=== PATIENT | male | born 1970 | race Caucasian/White ===

== ENCOUNTER 2020-11-18 07:32 | Inpatient (IN) | payer MEDICARE, OTHER ==
--- NOTE | 2020-11-18 08:22 | ED ---
General Adult HPI - General Chief complaint: Fall Stated complaint: sore on foot Time Seen by Provider: 11/18/20 07:47 Source: EMS Mode of arrival: EMS Limitations: no limitations - History of Present Illness Initial comments: 50-year-old male presents to the emergency room for a chief complaint of fall. Family reports patient has been complaining of right foot pain and has been falling. Patient usually uses a walker by his walker has been broken. This morning he did not use it and went to the bathroom and fell. He is complaining of left knee pain and right foot pain. Family is concerned that he needs rehab. States that they cannot take him home and she keeps falling. They state they have had to do this before as well.Patient has no other complaints at this time including shortness of breath, chest pain, abdominal pain, nausea or vomiting, headache, or visual changes. - Related Data Home Medications Medication Instructions Recorded Confirmed ARIPiprazole [Abilify] 5 mg PO HS@1900 11/23/13 11/18/20 ARIPiprazole [Abilify] 15 mg PO DAILY@79911/23/13 11/18/20 Citalopram Hydrobromide [CeleXA] 20 mg PO DAILY@0811/23/13 11/18/20 Topiramate 200 mg PO TID@0800,1600,1700 11/23/13 11/18/20 cloNIDine [Catapres-TTS] 0.1 mg PO TID@0800,1600,1900 11/23/13 11/18/20 Pravastatin Sodium [Pravachol] 40 mg PO HS@1900 09/19/15 11/18/20 Topiramate 25 mg PO DAILY@0809/19/15 11/18/20 carBAMazepine [carBAMazepine ER] 300 mg PO BID@0800,1900 09/19/15 11/18/20 Lisinopril-Hctz 10-12.5 mg 1 tab PO HS@189911/18/20 11/18/20 [Zestoretic 10-12.5] Naproxen 500 mg PO BID@0800,1600 11/18/20 11/18/20 Pediatric Multivitamin No.30 2 tab PO DAILY@0811/18/20 11/18/20 [Multivitamin Children's Gummies] metFORMIN HCL ER [Glucophage XR] 500 mg PO DAILY@1400 11/18/20 11/18/20 Allergies Allergy/AdvReac Type Severity Reaction Status Date / Time No Known Allergies Allergy Verified 11/18/20 09:01 Review of Systems ROS Statement: Those systems with pertinent positive or pertinent negative responses have been documented in the HPI. ROS Other: All systems not noted in ROS Statement are negative. 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 History of Any Multi-Drug Resistant Organisms: None Reported Past Surgical History: No Surgical Hx Reported Additional Past Surgical History / Comment(s): per mom- no past sx Past Anesthesia/Blood Transfusion Reactions: No Reported Reaction Additional Past Anesthesia/Blood Transfusion Reaction / Comment(s): never had aa Past Psychological History: No Psychological Hx Reported Past Alcohol Use History: None Reported Past Drug Use History: None Reported - Past Family History Mother Family Medical History: No Reported History Additional Family Medical History / Comment(s): mom stated her only problem is her wt. Father Family Medical History: No Reported History Additional Family Medical History / Comment(s): prostate cancer General Exam - General Exam Comments Initial Comments: Left knee: Patient has some edema noted of the left knee. No ecchymosis. Full range of motion. Patient has a large mass noted of the right leg. Limitations: no limitations General appearance: alert, in no apparent distress Head exam: Present: atraumatic Eye exam: Present: normal appearance, PERRL, EOMI. Absent: scleral icterus, conjunctival injection ENT exam: Present: normal exam, mucous membranes moist Neck exam: Present: normal inspection, full ROM. Absent: tenderness Respiratory exam: Present: normal lung sounds bilaterally. Absent: respiratory distress, wheezes Cardiovascular Exam: Present: regular rate, normal rhythm, normal heart sounds GI/Abdominal exam: Present: soft, normal bowel sounds. Absent: distended, tenderness Extremities exam: Present: tenderness (Mild tenderness in the generalized right foot.), normal capillary refill (Capillary refill less than 2 seconds.) Back exam: Absent: CVA tenderness (R), CVA tenderness (L) Neurological exam: Present: alert Course Vital Signs 11/18/20 11/18/20 07:38 09:39 Temperature 98.8 F Pulse Rate 75 76 Respiratory 18 18 Rate Blood Pressure 112/60 105/59 O2 Sat by Pulse 98 100 Oximetry Medical Decision Making - Medical Decision Making Vitals are stable. Patient is obese. Unable to move the right leg secondary to a large mass on the right leg. CBC unremarkable however evidence of dehydration and CMP. X-ray of the knee was obtained given a has been swollen since previous fall which did not show any fractures. Foot x-ray showed no acute fracture or dislocation. However patient is not able to ambulate on the right foot. It is unclear whether this is because of the fall and foot pain or a blood blister on the bottom of his foot. At any rate patient states family do not feel they can take him home. They state that he cannot get around because his walker is broken and his foot is hurting him too much. They state this is happened before and he has needed rehab. I did discuss this case with Dr. Sullivan who did e xcept the admission however recommended orthopedic consultation as well as PTOT and case management. - Lab Data Result diagrams: 11/18/20 08:11 11/18/20 08:11 Lab Results 11/18/20 11/18/20 Range/Units 08:11 08:11 WBC 11.0 H (3.8-10.6) k/uL RBC 4.59 (4.30-5.90) m/uL Hgb 13.3 (13.0-17.5) gm/dL Hct 41.8 (39.0-53.0) % MCV 91.0 (80.0-100.0) fL MCH 29.1 (25.0-35.0) pg MCHC 32.0 (31.0-37.0) g/dL RDW 14.3 (11.5-15.5) % Plt Count 237 (150-450) k/uL MPV 7.5 Neutrophils % 74 % Lymphocytes % 18 % Monocytes % 4 % Eosinophils % 3 % Basophils % 0 % Neutrophils # 8.1 H (1.3-7.7) k/uL Lymphocytes # 2.0 (1.0-4.8) k/uL Monocytes # 0.4 (0-1.0) k/uL Eosinophils # 0.3 (0-0.7) k/uL Basophils # 0.1 (0-0.2) k/uL Sodium 139 (137-145) mmol/L Potassium 4.1 (3.5-5.1) mmol/L Chloride 105 (98-107) mmol/L Carbon Dioxide 24 (22-30) mmol/L Anion Gap 10 mmol/L BUN 27 H (9-20) mg/dL Creatinine 1.35 H (0.66-1.25) mg/dL Est GFR (CKD-EPI)AfAm 70 (>60 ml/min/1.73 sqM) Est GFR (CKD-EPI)NonAf 61 (>60 ml/min/1.73 sqM) Glucose 117 H (74-99) mg/dL Calcium 8.6 (8.4-10.2) mg/dL Total Bilirubin 0.3 (0.2-1.3) mg/dL AST 20 (17-59) U/L ALT 13 (4-49) U/L Alkaline Phosphatase 100 (38-126) U/L Total Protein 6.6 (6.3-8.2) g/dL Albumin 3.5 (3.5-5.0) g/dL Disposition Clinical Impression: Unable to ambulate, Failure to thrive, Dehydration, Mass of right lower leg, Foot pain, right Disposition: ADMITTED IP TO THIS HOSP Condition: Fair Is patient prescribed a controlled substance at d/c from ED?: No Referrals: Casey Jose MD [Primary Care Provider] - 1-2 days Time of Disposition: 10:21
[2020-11-18 08:23] LABS: Basophils # (A) 0.1 k/uL (0-0.2); Basophils % (A) 0 %; Eosinophils # (A) 0.3 k/uL (0-0.7); Eosinophils % (A) 3 %; HCT 41.8 % (39.0-53.0); HGB 13.3 gm/dL (13.0-17.5); Lymphocytes % (A) 18 %; MCH 29.1 pg (25.0-35.0); Mean Platelet Volume 7.5; Monocytes # (A) 0.4 k/uL (0-1.0); Monocytes % (A) 4 %; Neutrophils # (A) 8.1 k/uL (1.3-7.7); Neutrophils % (A) 74 %; Platelet Count 237 k/uL (150-450); RBC 4.59 m/uL (4.30-5.90); RDW 14.3 % (11.5-15.5)
[2020-11-18 08:41] LABS: Albumin 3.5 g/dL (3.5-5.0); Calcium 8.6 mg/dL (8.4-10.2); Potassium 4.1 mmol/L (3.5-5.1); Total Bilirubin 0.3 mg/dL (0.2-1.3); Total Protein 6.6 g/dL (6.3-8.2)
--- NOTE | 2020-11-18 09:29 | XR ---
Right foot HISTORY: Trauma and pain 2 views the right foot Exam is limited technically. Digits are flexed which could limit sensitivity, and is overlying artifa ct. Alignment and bone mineralization, joint spaces are maintained, degenerative changes present at t he first metatarsophalangeal joint. Area of the proximal fifth metatarsal is not well-defined. There is degenerative change at the tibiotalar joint. Soft tissue swelling is present. IMPRESSION: No acute fracture or dislocation is evident within the limitations of the exam. Correlate for point tenderness proximal fifth metatarsal.
--- NOTE | 2020-11-18 09:31 | XR ---
Left knee HISTORY: Trauma and pain 2 views of left knee Exam is limited by patient body habitus. There is marginal spurring, tricompartmental loss of joint s pace. Alignment and bone mineralization are maintained. There is soft tissue swelling noted in the pr epatellar location. IMPRESSION: Correlate for ecchymosis, hematoma. There is osteoarthritis. No acute fracture or disloca tion evident within the limitations of the exam.
[2020-11-18] MEDS ORDERED: MORPHINE SULFATE 4 MG/ML SYRINGE IV PRN (10:22)
[2020-11-18] MEDS ORDERED: ONDANSETRON 4 MG/2 ML VIAL IVP PRN ×2 (10:22→15:07)
[2020-11-18] MEDS ORDERED: ACETAMINOPHEN TAB 325 MG TAB PO PRN (10:22)
[2020-11-18] MEDS ORDERED: NALOXONE 0.4 MG/ML 1 ML VIAL IV PRN (10:22)
[2020-11-18] MEDS: SODIUM CHLORIDE 0.9% 1,000 ML IV SCH (11:01)
--- NOTE | 2020-11-18 15:05 | P.HPIM ---
History of Present Illness H&P Date: 11/18/20 Chief Complaint: Difficulty walking History of presenting complaint: This is a pleasant 50-year-old patient who follows with Dr. Jose. History is obtained by the mother and the sister the bedside. Mother is the POA. 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 Has extreme morbidity. Had a baseline uses a walker. Able to hold a simple conversation. Patient had gone to take a shower and somehow landed up breaking his walker. He had recently taken a fall. Having some pain in the right knee and right ankle. X-ray didn't rule out a fracture. Still having some pain. Patient found the bathroom is able to walk back to a chair where the mother found him. Denies any dizziness or lightheadedness or chest pain or fever or chills. Appetite is fair. Patient is somewhat incontinent of urine. Patient also has a large mass growing over years that seems to started in the right groin area now becoming extremely large. No pain except for some discomfort from the same. Patient does have a pending appointment at [facility] Review of systems: GEN.: None EYES: None HEENT: None NECK: None RESPIRATORY: None CARDIOVASCULAR: None GASTROINTESTINAL: None GENITOURINARY: [Incontinent MUSCULOSKELETAL: [Right ankle and knee pain LYMPHATICS: None HEMATOLOGICAL: None PSYCHIATRY: Mental age of approximately 8 years NEUROLOGICAL: None. Past medical history to include: Seizure disorder, extreme obesity, tuberous sclerosis, does use a walker, mental age of 88 years old Social history: Lives with his mother, Sparkle who is the POA. No smoking or alcohol. Does use a walker. Family history: Reviewed, noncontributory to presentation Physical examination: VITAL SIGNS: 98.8, 75, 18, 112/60, 98% on room air GENERAL: BMI 67.8, reclining in bed, awake comfortable. EYES: Pupils equal. Conjunctiva normal. HEENT: External appearance of nose and ears normal, oral cavity grossly normal. NECK: JVD unable to assess; masses not palpable. HEART: Heart sounds are distal; minimal edema. LUNGS:[ Respiratory rate normal; distant breath sounds. ABDOMEN: Soft, nontender, liver spleen not palpable, no masses palpable. Very large mass growing from the medial part of upper right thigh and lower abdomen. PSYCH: Patient is able to answer simple questionsl. Moving his limbs EXTREMITIES: Pigmented discoloration of both the lower extremity lower half of the lower leg. Slight tenderness around the right ankle and right knee NEUROLOGICAL: Cranial nerves grossly intact; no facial asymmetry, power and sensation grossly intact. LYMPHATICS: No lymph nodes palpable in the axilla and neck INVESTIGATIONS, reviewed in the clinical context: WBC 11 hemoglobin 13.3 platelets 237 potassium 4.1 BUN 27, creatinine 1.35 Left knee x-ray: Soft tissue swelling in the prepatellar location. Evidence of OA Right foot 2 views: No acute fracture or dislocation. Some DJD changes Assessment and plan: -Acute on chronic gait dysfunction. At her baseline patient does use a walker. The latter is broken. Patient had a recent fall. Finding it difficult to walk. PTOT. Fall precautions -Morbid obesity is a BMI of 65.8 Weight loss measures -Mental age of 8 from underlying tuberous sclerosis -Intertriginous candidiasis in skin folds Diflucan powder 3 times a day -Enlarging chronic mass growing from the right groin over several years. Differential includes lymphedema , chronic hernia. Consult surgery. Patient is due to follow-up with [facility]. -Essential hypertension Catapres 0.1 mg 3 times a day -Diabetes mellitus type 2 Follow Accu-Chek. Glucophage XL 5 mg a day new -Epilepsy disorder Carbamazepine ER 300 mg twice a day and Topamax -Secondary osteoarthritis multiple joints, for morbid obesity Consult orthopedics for the joint pains. Home medications to be resumed. Fall precautions. PT OT. [employer] worker. Care was discussed with the mother and sister at the bedside. 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 History of Any Multi-Drug Resistant Organisms: None Reported Past Surgical History: No Surgical Hx Reported Additional Past Surgical History / Comment(s): per mom- no past sx Past Anesthesia/Blood Transfusion Reactions: No Reported Reaction Additional Past Anesthesia/Blood Transfusion Reaction / Comment(s): never had aa Past Psychological History: No Psychological Hx Reported Past Alcohol Use History: None Reported Past Drug Use History: None Reported - Past Family History Mother Family Medical History: No Reported History Additional Family Medical History / Comment(s): mom stated her only problem is her wt. Father Family Medical History: No Reported History Additional Family Medical History / Comment(s): prostate cancer Medications and Allergies Home Medications Medication Instructions Recorded Confirmed Type ARIPiprazole [Abilify] 5 mg PO HS@1900 11/23/13 11/18/20 History ARIPiprazole [Abilify] 15 mg PO DAILY@0800 11/23/13 11/18/20 History Citalopram Hydrobromide [CeleXA] 20 mg PO DAILY@0800 11/23/13 11/18/20 History Topiramate 200 mg PO TID@0800,1600,1700 11/23/13 11/18/20 History Pravastatin Sodium [Pravachol] 40 mg PO HS@1900 09/19/15 11/18/20 History Topiramate 25 mg PO DAILY@0800 09/19/15 11/18/20 History carBAMazepine [carBAMazepine ER] 300 mg PO BID@0800,1900 09/19/15 11/18/20 History Lisinopril-Hctz 10-12.5 mg 1 tab PO HS@1900 11/18/20 11/18/20 History [Zestoretic 10-12.5] Naproxen 500 mg PO BID@0800,1600 11/18/20 11/18/20 History Pediatric Multivitamin No.30 2 tab PO DAILY@0800 11/18/20 11/18/20 History [Multivitamin Children's Gummies] cloNIDine HCL [Catapres] 0.1 mg PO TID@0800,1600,1900 11/18/20 11/18/20 History metFORMIN HCL ER [Glucophage XR] 500 mg PO DAILY@1400 11/18/20 11/18/20 History Allergies Allergy/AdvReac Type Severity Reaction Status Date / Time No Known Allergies Allergy Verified 11/18/20 09:01 Physical Exam Vitals: Vital Signs Temp Pulse Resp BP Pulse Ox 11/18/20 09:39 76 18 105/59 100 11/18/20 07:38 98.8 F 75 18 112/60 98 Intake and Output 11/17/20 11/18/20 11/18/20 22:59 06:59 14:59 Other: Weight 226.796 kg Results CBC & Chem 7: 11/18/20 08:11 11/18/20 08:11 Labs: Abnormal Lab Results - Last 24 Hours (Table) 11/18/20 11/18/20 Range/Units 08:11 08:11 WBC 11.0 H (3.8-10.6) k/uL Neutrophils # 8.1 H (1.3-7.7) k/uL BUN 27 H (9-20) mg/dL Creatinine 1.35 H (0.66-1.25) mg/dL Glucose 117 H (74-99) mg/dL
[2020-11-18] MEDS ORDERED: MAG HYDROX/AL HYDROX/SIMETH 30 ML CUP PO PRN (15:07)
[2020-11-18] MEDS ORDERED: MELATONIN 3 MG TABLET PO PRN (15:07)
[2020-11-18] MEDS ORDERED: MAGNESIUM HYDROXIDE 2,400 MG/10 ML CUP PO PRN (15:07)
[2020-11-18] MEDS ORDERED: LACTULOSE 20 GM/30 ML CUP PO PRN (15:07)
[2020-11-18] MEDS ORDERED: CALCIUM CARBONATE 500 MG CHEWABLE PO PRN (15:07)
[2020-11-18] MEDS ORDERED: NAPROXEN 250 MG TAB PO SCH (16:00)
[2020-11-18] MEDS: cloNIDine HCL 0.1 MG TAB PO SCH ×2 (17:14→20:34)
[2020-11-18] MEDS: TOPIRAMATE 100 MG TAB PO SCH ×2 (17:14→17:15)
[2020-11-18] MEDS: metFORMIN 500 MG TAB PO SCH (17:15)
[2020-11-18] MEDS: ENOXAPARIN 40 MG/0.4 ML SYRINGE SQ SCH (17:15)
--- NOTE | 2020-11-18 17:32 | P.GSCN ---
History of Present Illness Consult date: 11/18/20 Reason for Consult: Right bypass History of present illness: This is a 50-year-old morbidly obese male with multiple medical problems. Patient was admitted due to inability to walk. 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 Father Family Medical History: No Reported History Additional Family Medical History / Comment(s): prostate cancer Medications and Allergies Home Medications Medication Instructions Recorded Confirmed Type ARIPiprazole [Abilify] 5 mg PO HS@189911/23/13 11/18/20 History ARIPiprazole [Abilify] 15 mg PO DAILY@79911/23/13 11/18/20 History Citalopram Hydrobromide [CeleXA] 20 mg PO DAILY@79911/23/13 11/18/20 History Topiramate 200 mg PO TID@0800,1600,1700 11/23/13 11/18/20 History Pravastatin Sodium [Pravachol] 40 mg PO HS@189909/19/15 11/18/20 History Topiramate 25 mg PO DAILY@79909/19/15 11/18/20 History carBAMazepine [carBAMazepine ER] 300 mg PO BID@0800,1900 09/19/15 11/18/20 History Lisinopril-Hctz 10-12.5 mg 1 tab PO HS@189911/18/20 11/18/20 History [Zestoretic 10-12.5] Naproxen 500 mg PO BID@0800,1600 11/18/20 11/18/20 History Pediatric Multivitamin No.30 2 tab PO DAILY@0811/18/20 11/18/20 History [Multivitamin Children's Gummies] cloNIDine HCL [Catapres] 0.1 mg PO TID@0800,1600,1900 11/18/20 11/18/20 History metFORMIN HCL ER [Glucophage XR] 500 mg PO DAILY@1400 11/18/20 11/18/20 History Allergies Allergy/AdvReac Type Severity Reaction Status Date / Time No Known Allergies Allergy Verified 11/18/20 09:01 Surgical - Exam Vital Signs Temp Pulse Resp BP Pulse Ox 98.8 F 75 18 112/60 98 11/18/20 07:38 11/18/20 07:38 11/18/20 07:38 11/18/20 07:38 11/18/20 07:38 - General well developed, well nourished, no distress - Eyes PERRL - ENT normal pinna - Neck no masses - Respiratory normal expansion - Cardiovascular Rhythm: regular - Abdomen Abdomen: soft, non tender - Integumentary Right thigh lymphedema Results - Labs 11/18/20 08:11 11/18/20 08:11 Abnormal Lab Results - Last 24 Hours (Table) 11/18/20 11/18/20 Range/Units 08:11 08:11 WBC 11.0 H (3.8-10.6) k/uL Neutrophils # 8.1 H (1.3-7.7) k/uL BUN 27 H (9-20) mg/dL Creatinine 1.35 H (0.66-1.25) mg/dL Glucose 117 H (74-99) mg/dL Diabetes panel 11/18/20 Range/Units 08:11 Sodium 139 (137-145) mmol/L Potassium 4.1 (3.5-5.1) mmol/L Chloride 105 (98-107) mmol/L Carbon Dioxide 24 (22-30) mmol/L BUN 27 H (9-20) mg/dL Creatinine 1.35 H (0.66-1.25) mg/dL Glucose 117 H (74-99) mg/dL Calcium 8.6 (8.4-10.2) mg/dL AST 20 (17-59) U/L ALT 13 (4-49) U/L Alkaline Phosphatase 100 (38-126) U/L Total Protein 6.6 (6.3-8.2) g/dL Albumin 3.5 (3.5-5.0) g/dL Calcium panel 11/18/20 Range/Units 08:11 Calcium 8.6 (8.4-10.2) mg/dL Albumin 3.5 (3.5-5.0) g/dL Pituitary panel 11/18/20 Range/Units 08:11 Sodium 139 (137-145) mmol/L Potassium 4.1 (3.5-5.1) mmol/L Chloride 105 (98-107) mmol/L Carbon Dioxide 24 (22-30) mmol/L BUN 27 H (9-20) mg/dL Creatinine 1.35 H (0.66-1.25) mg/dL Glucose 117 H (74-99) mg/dL Calcium 8.6 (8.4-10.2) mg/dL Adrenal panel 11/18/20 Range/Units 08:11 Sodium 139 (137-145) mmol/L Potassium 4.1 (3.5-5.1) mmol/L Chloride 105 (98-107) mmol/L Carbon Dioxide 24 (22-30) mmol/L BUN 27 H (9-20) mg/dL Creatinine 1.35 H (0.66-1.25) mg/dL Glucose 117 H (74-99) mg/dL Calcium 8.6 (8.4-10.2) mg/dL Total Bilirubin 0.3 (0.2-1.3) mg/dL AST 20 (17-59) U/L ALT 13 (4-49) U/L Alkaline Phosphatase 100 (38-126) U/L Total Protein 6.6 (6.3-8.2) g/dL Albumin 3.5 (3.5-5.0) g/dL Assessment and Plan Assessment: Chronic right thigh lymphedema. No surgical intervention is planned. Patient was managed medically
[2020-11-18] MEDS ORDERED: LISINOPRIL-HCTZ 10-12.5 MG 1 EACH TAB PO SCH (19:00)
[2020-11-18] MEDS: carBAMazepine 300 MG CPMP.12HR PO SCH (20:34)
[2020-11-18] MEDS: ARIPiprazole 5 MG TAB PO SCH (20:34)
[2020-11-18] MEDS: PRAVASTATIN SODIUM 40 MG TAB PO SCH (20:35)
[2020-11-18] MEDS: NYSTATIN 100,000 UNIT/GM POWD 15 GM TOPICAL SCH (20:35)
[2020-11-19] MEDS: SODIUM CHLORIDE 0.9% 1,000 ML IV SCH ×3 (02:28→21:29)
[2020-11-19 06:39] LABS: African American GFR (CKD) 86 (>60 ml/min/1.73 sqM); Anion Gap 7 mmol/L; Blood Urea Nitrogen 21 mg/dL (9-20); Calcium 8.5 mg/dL (8.4-10.2); Carbon Dioxide 21 mmol/L (22-30); Chloride 110 mmol/L (98-107); Glucose 106 mg/dL (74-99); Non-African American GFR(CKD) 74 (>60 ml/min/1.73 sqM); Sodium 138 mmol/L (137-145)
[2020-11-19 06:41] LABS: Potassium 4.4 mmol/L (3.5-5.1)
[2020-11-19 06:53] LABS: Appearance,Urine Clear (Clear); Bilirubin,Urine Negative (Negative); Blood,Urine Negative (Negative); Color,Urine Light Yellow; Glucose,Urine (UA) Negative (Negative); Ketones,Urine Negative (Negative); Leukocyte Esterase,Urine Negative (Negative); Nitrite,Urine Negative (Negative); PH, Urine 7.5 (5.0-8.0); Protein,Urine Negative (Negative); Specific Gravity,Urine 1.011 (1.001-1.035); Urobilinogen,Urine <2.0 mg/dL (<2.0)
[2020-11-19] MEDS: ENOXAPARIN 40 MG/0.4 ML SYRINGE SQ SCH (09:04)
[2020-11-19] MEDS: ARIPiprazole 15 MG TAB PO SCH (09:05)
[2020-11-19] MEDS: carBAMazepine 300 MG CPMP.12HR PO SCH ×2 (09:05→21:29)
[2020-11-19] MEDS: cloNIDine HCL 0.1 MG TAB PO SCH ×3 (09:06→21:29)
[2020-11-19] MEDS: metFORMIN 500 MG TAB PO SCH ×2 (09:06→17:47)
[2020-11-19] MEDS: TOPIRAMATE 100 MG TAB PO SCH ×5 (09:06→21:29)
[2020-11-19] MEDS: CITALOPRAM HYDROBROMIDE 20 MG TAB PO SCH (09:06)
[2020-11-19] MEDS: TOPIRAMATE 25 MG TAB PO SCH (09:07)
[2020-11-19] MEDS: MULTIVITAMINS, THERA 1 EACH TAB PO SCH (09:07)
[2020-11-19] MEDS: NYSTATIN 100,000 UNIT/GM POWD 15 GM TOPICAL SCH ×2 (09:09→21:29)
--- NOTE | 2020-11-19 10:18 | P.CNOR ---
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 Patient walks with a walker at baseline. Patient is unable to provide much history surrounding his fall. Per emergency department note, patient had a fall yesterday in the bathroom. His walker was apparently broken after the fall. Patient lives with his mother. Patient was unable to ambulate following this fall, therefore patient presented to [facility] emergency department for further evaluation. X-rays of the right foot and left knee were taken, no acute fractures identified. Patient was admitted under the care of internal medicine for rehab placement and physical therapy evaluation, with a consult placed to orthopedics. At the time of my exam, patient has no complaints. He declines left knee pain or right foot pain. He denies numbness or tingling of the bilateral lower extremities. He denies bilateral upper extremity pain. Vital signs stable. 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 Father Family Medical History: No Reported History Additional Family Medical History / Comment(s): prostate cancer Medications and Allergies Home Medications Medication Instructions Recorded Confirmed Type ARIPiprazole [Abilify] 5 mg PO HS@1900 11/23/13 11/18/20 History ARIPiprazole [Abilify] 15 mg PO DAILY@0811/23/13 11/18/20 History Citalopram Hydrobromide [CeleXA] 20 mg PO DAILY@0811/23/13 11/18/20 History Topiramate 200 mg PO TID@0800,1600,1700 11/23/13 11/18/20 History Pravastatin Sodium [Pravachol] 40 mg PO HS@1900 09/19/15 11/18/20 History Topiramate 25 mg PO DAILY@0800 09/19/15 11/18/20 History carBAMazepine [carBAMazepine ER] 300 mg PO BID@0800,1900 09/19/15 11/18/20 History Lisinopril-Hctz 10-12.5 mg 1 tab PO HS@1900 11/18/20 11/18/20 History [Zestoretic 10-12.5] Naproxen 500 mg PO BID@0800,1600 11/18/20 11/18/20 History Pediatric Multivitamin No.30 2 tab PO DAILY@0800 11/18/20 11/18/20 History [Multivitamin Children's Gummies] cloNIDine HCL [Catapres] 0.1 mg PO TID@0800,1600,1900 11/18/20 11/18/20 History metFORMIN HCL ER [Glucophage XR] 500 mg PO DAILY@1400 11/18/20 11/18/20 History Allergies Allergy/AdvReac Type Severity Reaction Status Date / Time No Known Allergies Allergy Verified 11/18/20 09:01 Physical Examination On examination, the patient is lying bed in no apparent distress. He is alert and answer questions appropriately. His head appears normocephalic and atraumatic. His breathing appears nonlabored. On inspection of the bilateral upper extremities, there are no obvious deformities or signs of trauma. On inspection of the right foot, there is no significant swelling, ecchymosis. There is a small hemorrhagic blister on the plantar surface of the foot. No surrounding erythema, warmth, fluctuance. No signs of infection at this time. This area of the blister is mildly tender to palpation. The remaining right foot and ankle are nontender to palpation. The fifth metatarsal base is nontender. No pain with PROM of the hip, ankle, toes. Motor and sensory function is intact of the right lower extremity. Right lower extremity warm and well perfused with brisk capillary refill distally. Calf is soft and nontender to palpation. On inspection of the left knee, there is diffuse swelling of the prepatellar area. There is no overlying erythema, warmth. No ecchymosis. No signs of infection at this time. No pain with PROM of the knee. No pain with PROM of the left hip. Motor and sensory function is intact of the left lower extremity. Left lower extremities warm and well perfused with brisk capillary refill distally. Calf is soft and nontender to palpation. Results Right foot x-ray 11/18/20: No obvious acute fractures or dislocations identified. Left knee x-ray 11/18/20: Arthritic changes. No obvious acute fractures. - Labs Labs: Abnormal Lab Results - Last 24 Hours (Table) 11/19/20 Range/Units 06:09 Chloride 110 H (98-107) mmol/L Carbon Dioxide 21 L (22-30) mmol/L BUN 21 H (9-20) mg/dL Glucose 106 H (74-99) mg/dL H & H 11/18/20 Range/Units 08:11 Hgb 13.3 (13.0-17.5) gm/dL Hct 41.8 (39.0-53.0) % Result Diagrams: 11/18/20 08:11 11/19/20 06:09 Assessment and Plan Assessment: Right foot pain status-post fall Hemorrhagic blister, plantar surface right foot Left knee pain Plan: - Patient was discussed with Dr. Herbert. Recommended we obtain a CT scan of the right foot due to continued pain following fall. - In regards to his left knee pain, there are arthritic changes on his x-rays. Patient is not complaining of left knee pain today. We will continue to monitor. Physical therapy for gait and balance training. Up with assistance and a walker. - Further recommendations pending right foot CT scan results.
--- NOTE | 2020-11-19 11:53 | CT ---
EXAMINATION TYPE: CT foot RT wo con DATE OF EXAM: 11/19/2020 COMPARISON: Plain film radiographs 11/18/2020 HISTORY: Pain status post fall Unenhanced CT of the right foot was performed in the axial sagittal and coronal planes. The 3-D recon struction was obtained at a separate workstation. Automated exposure control for dose reduction was used. FINDINGS: I do not see evidence for displaced fracture or dislocation. Cystic degenerative change involving portions of the os calcis and talus. Mild soft tissue swelling overlying the dorsum of the foot. No evidence of bony destructive process o r a soft tissue ulceration. Hallux valgus deformity first metatarsophalangeal joint. IMPRESSION: I do not see evidence for displaced fracture or dislocation.
--- NOTE | 2020-11-19 17:43 | P.PN ---
Progress Note - Text Progress Note Date: 11/19/20 Chief Complaint: Difficulty walking History of presenting complaint: This is a pleasant 50-year-old patient who follows with Dr. Jose. History is obtained by the mother and the sister the bedside. Mother is the POA. 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 Has extreme morbidity. Had a baseline uses a walker. Able to hold a simple conversation. Patient had gone to take a shower and somehow landed up breaking his walker. He had recently taken a fall. Having some pain in the right knee and right ankle. X-ray didn't rule out a fracture. Still having some pain. Patient found the bathroom is able to walk back to a chair where the mother found him. Denies any dizziness or lightheadedness or chest pain or fever or chills. Appetite is fair. Patient is somewhat incontinent of urine. Patient also has a large mass growing over years that seems to started in the right groin area now becoming extremely large. No pain except for some discomfort from the same. Patient does have a pending appointment at [facility] November 192020: Laying in bed. Watching television. Oral intake good. Mother and sister the bedside. Computed tomography scan of the foot did not show any fracture. Also seen by orthopedics earlier. 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 Not any surgical intervention. Per Dr. Zhu. Review of systems: Was done for constitutional, cardiovascular, GI, pulmonary. relevant finding as above Active Medications Acetaminophen (Acetaminophen Tab 325 Mg Tab) 650 mg PO Q6HR PRN PRN Reason: Mild Pain or Fever > 100.5 Al Hydroxide/Mg Hydroxide (Mag Hydrox/Al Hydrox/Simeth 30 Ml Cup) 15 ml PO Q6HR PRN PRN Reason: Indigestion Aripiprazole (Aripiprazole 5 Mg Tab) 5 mg PO HS@1900 [facility] Last Admin: 11/18/20 20:34 Dose: 5 mg Documented by: Aripiprazole (Aripiprazole 15 Mg Tab) 15 mg PO DAILY@0800 [facility] Last Admin: 11/19/20 09:05 Dose: 15 mg Documented by: Calcium Carbonate/Glycine (Calcium Carbonate 500 Mg Chewable) 1,000 mg PO Q4HR PRN PRN Reason: Dyspepsia Carbamazepine (Carbamazepine 300 Mg Cpmp.12hr) 300 mg PO BID@0800,1900 [facility] Last Admin: 11/19/20 09:05 Dose: 300 mg Documented by: Citalopram Hydrobromide (Citalopram Hydrobromide 20 Mg Tab) 20 mg PO DAILY@0800 [facility] Last Admin: 11/19/20 09:06 Dose: 20 mg Documented by: Clonidine (Clonidine Hcl 0.1 Mg Tab) 0.1 mg PO TID@0800,1600,1900 [facility] Last Admin: 11/19/20 09:06 Dose: 0.1 mg Documented by: Enoxaparin Sodium (Enoxaparin 40 Mg/0.4 Ml Syringe) 40 mg SQ DAILY [facility] Last Admin: 11/19/20 09:04 Dose: 40 mg Documented by: Sodium Chloride (Saline 0.9%) 1,000 mls @ 100 mls/hr IV .Q10H [facility] Last Admin: 11/19/20 11:55 Dose: 100 mls/hr Documented by: Lactulose (Lactulose 20 Gm/30 Ml Cup) 20 gm PO DAILY PRN PRN Reason: Constipation Magnesium Hydroxide (Magnesium Hydroxide 2,400 Mg/10 Ml Cup) 2,400 mg PO DAILY PRN PRN Reason: Constipation Melatonin (Melatonin 3 Mg Tablet) 3 mg PO HS PRN PRN Reason: Insomnia Metformin HCl (Metformin 500 Mg Tab) 250 mg PO AC-BID [facility] Last Admin: 11/19/20 09:06 Dose: 250 mg Documented by: Multivitamins (Multivitamins, Thera 1 Each Tab) 1 each PO DAILY@0800 [facility] Last Admin: 11/19/20 09:07 Dose: 1 each Documented by: Naloxone HCl (Naloxone 0.4 Mg/Ml 1 Ml Vial) 0.2 mg IV Q2M PRN PRN Reason: Opioid Reversal Nystatin (Nystatin 100,000 Unit/Gm Powd 15 Gm) 1 applic TOPICAL BID [facility]; Protocol Last Admin: 11/19/20 09:09 Dose: 1 applic Documented by: Ondansetron HCl (Ondansetron 4 Mg/2 Ml Vial) 4 mg IVP Q8HR PRN PRN Reason: Nausea And Vomiting Pravastatin Sodium (Pravastatin Sodium 40 Mg Tab) 40 mg PO HS@1900 [facility] Last Admin: 11/18/20 20:35 Dose: 40 mg Documented by: Topiramate (Topiramate 25 Mg Tab) 25 mg PO DAILY@0800 [facility] Last Admin: 11/19/20 09:07 Dose: 25 mg Documented by: Topiramate (Topiramate 100 Mg Tab) 200 mg PO TID@0800,1600,1900 [facility] Past medical history to include: Seizure disorder, extreme obesity, tuberous sclerosis, does use a walker, mental age of 88 years old Social history: Lives with his mother, Sparkle who is the POA. No smoking or alcohol. Does use a walker. Family history: Reviewed, noncontributory to presentation Physical examination: VITAL SIGNS: 99, 70, 16, 111/68, 95% room air GENERAL: BMI 67.8, reclining in bed, awake comfortable. EYES: Pupils equal. Conjunctiva normal. HEENT: External appearance of nose and ears normal, oral cavity grossly normal. NECK: JVD unable to assess; masses not palpable. HEART: Heart sounds are distal; minimal edema. LUNGS:[ Respiratory rate normal; distant breath sounds. ABDOMEN: Soft, nontender, liver spleen not palpable, no masses palpable. Very large mass growing from the medial part of upper right thigh and lower abdomen. PSYCH: Patient is able to answer simple questionsl. Moving his limbs EXTREMITIES: Pigmented discoloration of both the lower extremity lower half of the lower leg. Slight tenderness around the right ankle and right knee INVESTIGATIONS, reviewed in the clinical context: November 19: Potassium 4.4 BUN 1.15 WBC 11 hemoglobin 13.3 platelets 237 potassium 4.1 BUN 27, creatinine 1.35 Left knee x-ray: Soft tissue swelling in the prepatellar location. Evidence of OA Right foot 2 views: No acute fracture or dislocation. Some DJD changes Assessment and plan: -Acute on chronic gait dysfunction. At her baseline patient does use a walker, which is broken. Patient had a recent fall. Finding it difficult to walk. PTOT. Fall precautions -Morbid obesity is a BMI of 65.8 Weight loss measures -Mental age of 8 from underlying tuberous sclerosis -Intertriginous candidiasis in skin folds Diflucan powder 3 times a day -Enlarging chronic mass growing from the right groin over several years. Lymphocele Patient is due to follow-up with [facility]. Patient seen by Dr. Zhu here. any intervention. -Essential hypertension Catapres 0.1 mg 3 times a day -Diabetes mellitus type 2 Follow Accu-Chek. Glucophage XL 500 mg a day -Epilepsy disorder Carbamazepine ER 300 mg twice a day and Topamax -Secondary osteoarthritis multiple joints, from morbid obesity Social workers looking into placement. Patient has been declined by at least 2 or 3 inpatient rehab places. Options limited. Follow
[2020-11-19] MEDS: ARIPiprazole 5 MG TAB PO SCH (21:29)
[2020-11-19] MEDS: PRAVASTATIN SODIUM 40 MG TAB PO SCH (21:29)
[2020-11-20] MEDS: SODIUM CHLORIDE 0.9% 1,000 ML IV SCH ×4 (03:53→21:55)
[2020-11-20] MEDS: TOPIRAMATE 100 MG TAB PO SCH ×3 (08:42→21:55)
[2020-11-20] MEDS: ENOXAPARIN 40 MG/0.4 ML SYRINGE SQ SCH (08:42)
[2020-11-20] MEDS: carBAMazepine 300 MG CPMP.12HR PO SCH ×2 (08:42→21:55)
[2020-11-20] MEDS: MULTIVITAMINS, THERA 1 EACH TAB PO SCH (08:43)
[2020-11-20] MEDS: metFORMIN 500 MG TAB PO SCH ×2 (08:43→16:27)
[2020-11-20] MEDS: CITALOPRAM HYDROBROMIDE 20 MG TAB PO SCH (08:43)
[2020-11-20] MEDS: cloNIDine HCL 0.1 MG TAB PO SCH ×3 (08:43→21:55)
[2020-11-20] MEDS: TOPIRAMATE 25 MG TAB PO SCH (08:44)
[2020-11-20] MEDS: NYSTATIN 100,000 UNIT/GM POWD 15 GM TOPICAL SCH ×2 (08:44→21:55)
[2020-11-20] MEDS: ARIPiprazole 15 MG TAB PO SCH (08:44)
--- NOTE | 2020-11-20 09:16 | P.PN ---
Progress Note - Text Progress Note Date: 11/19/20 Patient's right thigh lymphocele stable. There is no significant infection. There is no surgical intervention planned. We will sign off.
--- NOTE | 2020-11-20 11:24 | P.PN ---
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 Patient walks with a walker at baseline. Patient is unable to provide much history surrounding his fall. Per emergency department note, patient had a fall yesterday in the bathroom. His walker was apparently broken after the fall. Patient lives with his mother. Patient was unable to ambulate following this fall, therefore patient presented to [facility] emergency department for further evaluation. X-rays of the right foot and left knee were taken, no acute fractures identified. Patient was admitted under the care of internal medicine for rehab placement and physical therapy evaluation, with a consult placed to orthopedics. At the time of my exam, patient has no complaints. He declines left knee pain or right foot pain. He denies numbness or tingling of the bilateral lower extremities. He denies bilateral upper extremity pain. Vital signs stable. 11/20/20: Patient is seen and examined bedside. Patient denies pain anywhere today when asked. He overall is comfortable. Per nursing, he has not been out of bed. Discharge plan is to inpatient rehab. He denies new complaints. Objective - Vital Signs Vital signs: Vital Signs Temp 98.1 F 11/20/20 06:58 Pulse 69 11/20/20 09:56 Resp 19 11/20/20 06:58 BP 130/79 11/20/20 06:58 Pulse Ox 96 11/20/20 04:36 Intake & Output 11/19/20 11/20/20 11/20/20 18:59 06:59 18:59 Intake Total 1200 Balance 1200 Intake: Intake, IV Titration 1200 Amount Sodium Chloride 0.9% 1, 1200 000 ml @ 100 mls/hr IV . Q10H [facility] Rx#:[id number] Other: Voiding Method Incontinent Incontinent Diaper Incontinent # Voids 4 2 # Bowel Movements 1 - Exam On examination, the patient is lying bed in no apparent distress. He is alert and answer questions appropriately. On inspection of the right foot, there is no significant swelling, ecchymosis. There is a small hemorrhagic blister on the plantar surface of the foot. No surrounding erythema, warmth, fluctuance. No signs of infection at this time. This area of the blister is mildly tender to palpation. The remaining right foot and ankle are nontender to palpation. No pain with PROM of the hip, ankle, toes. Motor and sensory function is intact of the right lower extremity. Right lower extremity warm and well perfused with brisk capillary refill distally. Calf is soft and nontender to palpation. On inspection of the left knee, there is diffuse swelling of the prepatellar area. There is no overlying erythema, warmth. No ecchymosis. No signs of infection at this time. No pain with PROM of the knee. No pain with PROM of the left hip. Motor and sensory function is intact of the left lower extremity. Left lower extremities warm and well perfused with brisk capillary refill distally. Calf is soft and nontender to palpation. - Labs CBC & Chem 7: 11/18/20 08:11 11/19/20 06:09 Assessment and Plan Assessment: Right foot pain status-post fall Hemorrhagic blister, plantar surface right foot Plan: - Patient was discussed with Dr. Herbert. CT scan of right foot negative. Patient may weight bear as tolerated on right foot. - Recommend physical therapy for gait and balance training. - Protect area of right foot with plantar surface hemorrhagic blister. Recommend consultation with wound care team. - We will follow patient on an as-needed basis.
--- NOTE | 2020-11-20 17:31 | P.PN ---
Progress Note - Text Progress Note Date: 11/20/20 Chief Complaint: Difficulty walking History of presenting complaint: This is a pleasant 50-year-old patient who follows with Dr. Jose. History is obtained by the mother and the sister the bedside. Mother is the POA. 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 Has extreme morbidity. Had a baseline uses a walker. Able to hold a simple conversation. Patient had gone to take a shower and somehow landed up breaking his walker. He had recently taken a fall. Having some pain in the right knee and right ankle. X-ray didn't rule out a fracture. Still having some pain. Patient found the bathroom is able to walk back to a chair where the mother found him. Denies any dizziness or lightheadedness or chest pain or fever or chills. Appetite is fair. Patient is somewhat incontinent of urine. Patient also has a large mass growing over years that seems to started in the right groin area now becoming extremely large. No pain except for some discomfort from the same. Patient does have a pending appointment at [facility] November 192020: Laying in bed. Watching television. Oral intake good. Mother and sister the bedside. Computed tomography scan of the foot did not show any fracture. Also seen by orthopedics earlier. 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 Not any surgical intervention. Per Dr. Zhu. November 202020: Laying in bed. Comfortable. No new issues. Seen by orthopedics. Note for any further intervention. Review of systems: Was done for constitutional, cardiovascular, GI, pulmonary. relevant finding as above Active Medications Acetaminophen (Acetaminophen Tab 325 Mg Tab) 650 mg PO Q6HR PRN PRN Reason: Mild Pain or Fever > 100.5 Al Hydroxide/Mg Hydroxide (Mag Hydrox/Al Hydrox/Simeth 30 Ml Cup) 15 ml PO Q6HR PRN PRN Reason: Indigestion Aripiprazole (Aripiprazole 5 Mg Tab) 5 mg PO HS@1900 [facility] Last Admin: 11/19/20 21:29 Dose: 5 mg Documented by: Aripiprazole (Aripiprazole 15 Mg Tab) 15 mg PO DAILY@0800 [facility] Last Admin: 11/20/20 08:44 Dose: 15 mg Documented by: Calcium Carbonate/Glycine (Calcium Carbonate 500 Mg Chewable) 1,000 mg PO Q4HR PRN PRN Reason: Dyspepsia Carbamazepine (Carbamazepine 300 Mg Cpmp.12hr) 300 mg PO BID@0800,1900 [facility] Last Admin: 11/20/20 08:42 Dose: 300 mg Documented by: Citalopram Hydrobromide (Citalopram Hydrobromide 20 Mg Tab) 20 mg PO DAILY@0800 [facility] Last Admin: 11/20/20 08:43 Dose: 20 mg Documented by: Clonidine (Clonidine Hcl 0.1 Mg Tab) 0.1 mg PO TID@0800,1600,1900 [facility] Last Admin: 11/20/20 16:27 Dose: 0.1 mg Documented by: Enoxaparin Sodium (Enoxaparin 40 Mg/0.4 Ml Syringe) 40 mg SQ DAILY [facility] Last Admin: 11/20/20 08:42 Dose: 40 mg Documented by: Sodium Chloride (Saline 0.9%) 1,000 mls @ 100 mls/hr IV .Q10H [facility] Last Admin: 11/20/20 16:26 Dose: 100 mls/hr Documented by: Lactulose (Lactulose 20 Gm/30 Ml Cup) 20 gm PO DAILY PRN PRN Reason: Constipation Magnesium Hydroxide (Magnesium Hydroxide 2,400 Mg/10 Ml Cup) 2,400 mg PO DAILY PRN PRN Reason: Constipation Melatonin (Melatonin 3 Mg Tablet) 3 mg PO HS PRN PRN Reason: Insomnia Metformin HCl (Metformin 500 Mg Tab) 250 mg PO AC-BID [facility] Last Admin: 11/20/20 16:27 Dose: 250 mg Documented by: Multivitamins (Multivitamins, Thera 1 Each Tab) 1 each PO DAILY@0800 [facility] Last Admin: 11/20/20 08:43 Dose: 1 each Documented by: Naloxone HCl (Naloxone 0.4 Mg/Ml 1 Ml Vial) 0.2 mg IV Q2M PRN PRN Reason: Opioid Reversal Nystatin (Nystatin 100,000 Unit/Gm Powd 15 Gm) 1 applic TOPICAL BID [facility]; Protocol Last Admin: 11/20/20 08:44 Dose: 1 applic Documented by: Ondansetron HCl (Ondansetron 4 Mg/2 Ml Vial) 4 mg IVP Q8HR PRN PRN Reason: Nausea And Vomiting Pravastatin Sodium (Pravastatin Sodium 40 Mg Tab) 40 mg PO HS@1900 [facility] Last Admin: 11/19/20 21:29 Dose: 40 mg Documented by: Topiramate (Topiramate 25 Mg Tab) 25 mg PO DAILY@0800 [facility] Last Admin: 11/20/20 08:44 Dose: 25 mg Documented by: Topiramate (Topiramate 100 Mg Tab) 200 mg PO TID@0800,1600,1900 [facility] Last Admin: 11/20/20 16:27 Dose: 200 mg Documented by: Past medical history to include: Seizure disorder, extreme obesity, tuberous sclerosis, does use a walker, mental age of 88 years old Social history: Lives with his mother, Sparkle who is the POA. No smoking or alcohol. Does use a walker. Family history: Reviewed, noncontributory to presentation Physical examination: VITAL SIGNS: 98.6, 68, 17, 112 x 57, 96% room air GENERAL: reclining in bed, awake comfortable. EYES: Pupils equal. Conjunctiva normal. HEENT: External appearance of nose and ears normal, oral cavity grossly normal. NECK: JVD unable to assess; masses not palpable. HEART: Heart sounds are distal; minimal edema. LUNGS:[ Respiratory rate normal; distant breath sounds. ABDOMEN: Soft, nontender, liver spleen not palpable, no masses palpable. Very large mass growing from the medial part of upper right thigh and lower abdomen. PSYCH: Patient is able to answer simple questionsl. Moving his limbs EXTREMITIES: Pigmented discoloration of both the lower extremity lower half of the lower leg. Slight tenderness around the right ankle and right knee INVESTIGATIONS, reviewed in the clinical context: November 19: Potassium 4.4 BUN 1.15 WBC 11 hemoglobin 13.3 platelets 237 potassium 4.1 BUN 27, creatinine 1.35 Left knee x-ray: Soft tissue swelling in the prepatellar location. Evidence of OA Right foot 2 views: No acute fracture or dislocation. Some DJD changes Assessment and plan: -Acute on chronic gait dysfunction. At her baseline patient does use a walker, which is broken. Patient had a recent fall. Finding it difficult to walk. PTOT. Fall precautions -Morbid obesity is a BMI of 65.8 Weight loss measures -Mental age of 8 from underlying tuberous sclerosis -Intertriginous candidiasis in skin folds Diflucan powder 3 times a day -Enlarging chronic mass growing from the right groin over several years. Lymphocele Patient is due to follow-up with [facility]. Patient seen by Dr. Zhu here. Dr. any intervention. -Essential hypertension Catapres 0.1 mg 3 times a day -Diabetes mellitus type 2 Follow Accu-Chek. Glucophage XL 500 mg a day -Epilepsy disorder Carbamazepine ER 300 mg twice a day and Topamax -Secondary osteoarthritis multiple joints, from morbid obesity Continue current medication to the plan. Patient be getting discharged to rehab
[2020-11-20 20:07] VITALS: RESP 18
[2020-11-20] MEDS: ARIPiprazole 5 MG TAB PO SCH (21:54)
[2020-11-20] MEDS: PRAVASTATIN SODIUM 40 MG TAB PO SCH (21:55)
[2020-11-21 06:19] LABS: African American GFR (CKD) 81 (>60 ml/min/1.73 sqM); Anion Gap 9 mmol/L; Blood Urea Nitrogen 17 mg/dL (9-20); Calcium 8.7 mg/dL (8.4-10.2); Carbon Dioxide 21 mmol/L (22-30); Chloride 108 mmol/L (98-107); Glucose 95 mg/dL (74-99); Non-African American GFR(CKD) 70 (>60 ml/min/1.73 sqM); Potassium 4.1 mmol/L (3.5-5.1); Sodium 138 mmol/L (137-145)
[2020-11-21] MEDS: MULTIVITAMINS, THERA 1 EACH TAB PO SCH (09:51)
[2020-11-21] MEDS: ARIPiprazole 15 MG TAB PO SCH (09:51)
[2020-11-21] MEDS: carBAMazepine 300 MG CPMP.12HR PO SCH (09:51)
[2020-11-21] MEDS: metFORMIN 500 MG TAB PO SCH (09:51)
[2020-11-21] MEDS: ENOXAPARIN 40 MG/0.4 ML SYRINGE SQ SCH (09:52)
[2020-11-21] MEDS: CITALOPRAM HYDROBROMIDE 20 MG TAB PO SCH (09:52)
[2020-11-21] MEDS: cloNIDine HCL 0.1 MG TAB PO SCH ×2 (09:52→16:50)
[2020-11-21] MEDS: TOPIRAMATE 25 MG TAB PO SCH (09:52)
[2020-11-21] MEDS: NYSTATIN 100,000 UNIT/GM POWD 15 GM TOPICAL SCH (09:53)
[2020-11-21] MEDS: TOPIRAMATE 100 MG TAB PO SCH ×2 (09:53→16:50)
[2020-11-21 12:25] VITALS: BP 131/71; PULSE 63; TEMP 97.6
--- NOTE | 2020-11-21 14:44 | P.DS ---
Providers Date of admission: 11/18/20 10:45 Expected date of discharge: 11/21/20 Attending physician: Jonh Sullivan Consults: 11/18/20 10:23 Consult Physician Routine Consulting Provider: Anthony Herbert Consult Reason/Comments: foot pain, fall Do you want consulting provider notified?: Yes 11/18/20 13:13 Consult Physician Routine Consulting Provider: Jens Zhu Consult Reason/Comments: abdominal mass Do you want consulting provider notified?: Yes Primary care physician: [facility] Course: Chief Complaint: Difficulty walking History of presenting complaint: This is a pleasant 50-year-old patient who follows with Dr. Jose. History is obtained by the mother and the sister the bedside. Mother is the POA. 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 Has extreme morbidity. Had a baseline uses a walker. Able to hold a simple conversation. Patient had gone to take a shower and somehow landed up breaking his walker. He had recently taken a fall. Having some pain in the right knee and right ankle. X-ray didn't rule out a fracture. Still having some pain. Patient found the bathroom is able to walk back to a chair where the mother found him. Denies any dizziness or lightheadedness or chest pain or fever or chills. Appetite is fair. Patient is somewhat incontinent of urine. Patient also has a large mass growing over years that seems to started in the right groin area now becoming extremely large. No pain except for some discomfort from the same. Patient does have a pending appointment at [facility] November 192020: Laying in bed. Watching television. Oral intake good. Mother and sister the bedside. Computed tomography scan of the foot did not show any fracture. Also seen by orthopedics earlier. 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 Not any surgical intervention. Per Dr. Zhu. November 202020: Laying in bed. Comfortable. No new issues. Seen by orthopedics. Note for any further intervention. 11/21/2020: Laying in bed. Comfortable. Oral intake good. Transferred to inpatient rehab. Consultation: Dr. Herbert from orthopedics Dr. Zhu from general surgery Past medical history to include: Seizure disorder, extreme obesity, tuberous sclerosis, does use a walker, mental age of 88 years old Social history: Lives with his mother, Sparkle who is the POA. No smoking or alcohol. Does use a walker. Family history: Reviewed, noncontributory to presentation Physical examination: VITAL SIGNS: 97.6, 63, 18, 131/71, 98% room air GENERAL: reclining in bed, awake comfortable. EYES: Pupils equal. Conjunctiva normal. HEENT: External appearance of nose and ears normal, oral cavity grossly normal. NECK: JVD unable to assess; masses not palpable. HEART: Heart sounds are distal; minimal edema. LUNGS:[ Respiratory rate normal; distant breath sounds. ABDOMEN: Soft, nontender, liver spleen not palpable, no masses palpable. Very large mass growing from the medial part of upper right thigh and lower abdomen. PSYCH: Patient is able to answer simple questionsl. Moving his limbs EXTREMITIES: Pigmented discoloration of both the lower extremity lower half of the lower leg. Slight tenderness around the right ankle and right knee . Fluid blister on the right plantar foot. INVESTIGATIONS, reviewed in the clinical context: November 21: Potassium 4.1 creatinine 1.21 November 19: Potassium 4.4 BUN 1.15 WBC 11 hemoglobin 13.3 platelets 237 potassium 4.1 BUN 27, creatinine 1.35 Left knee x-ray: Soft tissue swelling in the prepatellar location. Evidence of OA Right foot 2 views: No acute fracture or dislocation. Some DJD changes Assessment and plan: -Acute on chronic gait dysfunction. baseline patient does use a walker, Patient had a recent fall. Finding it difficult to walk. PTOT. Fall precautions -Morbid obesity is a BMI of 65.8 Weight loss measures -Mental age of 8 from underlying tuberous sclerosis -Intertriginous candidiasis in skin folds Nystatin powder 3 times a day -Enlarging chronic mass growing from the right groin over several years. Lymphocele Patient is due to follow-up with [facility]. Patient seen by Dr. Zhu here. Not for any any intervention currently. -Essential hypertension Catapres 0.1 mg 3 times a day -Diabetes mellitus type 2 Follow Accu-Chek. Glucophage XL 500 mg a day -Epilepsy disorder Carbamazepine ER 300 mg twice a day and Topamax -Secondary osteoarthritis multiple joints, from morbid obesity -Mother [Sparkle]: Legal guardian Disposition: [facility] rehab: [facility] bed Patient Condition at Discharge: Fair Plan - Discharge Summary New Discharge Prescriptions: New Nystatin 100,000 Unit/gm Powd [Mycostatin Powder] 1 applic TOPICAL BID gm Acetaminophen Tab [Tylenol] 650 mg PO Q6HR PRN tab PRN Reason: Mild Pain Or Fever > 100.5 Naproxen 250 mg PO Q8H PRN #1 tablet PRN Reason: Pain Continue ARIPiprazole [Abilify] 5 mg PO HS@1900 ARIPiprazole [Abilify] 15 mg PO DAILY@0800 Topiramate 200 mg PO TID@0800,1600,1900 Citalopram Hydrobromide [CeleXA] 20 mg PO DAILY@0800 Topiramate 25 mg PO DAILY@0800 carBAMazepine [carBAMazepine ER] 300 mg PO BID@0800,1900 Pravastatin Sodium [Pravachol] 40 mg PO HS@1900 metFORMIN HCL ER [Glucophage XR] 500 mg PO DAILY@1400 Pediatric Multivitamin No.30 [Multivitamin Children's Gummies] 2 tab PO DAILY@0800 cloNIDine HCL [Catapres] 0.1 mg PO TID@0800,1600,1900 Discontinued Lisinopril-Hctz 10-12.5 mg [Zestoretic 10-12.5] 1 tab PO HS@1900 Naproxen 500 mg PO BID@0800,1600 Discharge Medication List ARIPiprazole [Abilify] 5 mg PO HS@1900 11/23/13 [History] ARIPiprazole [Abilify] 15 mg PO DAILY@0800 11/23/13 [History] Citalopram Hydrobromide [CeleXA] 20 mg PO DAILY@0811/23/13 [History] Topiramate 200 mg PO TID@0800,1600,1900 11/23/13 [History] Pravastatin Sodium [Pravachol] 40 mg PO HS@19009/19/15 [History] Topiramate 25 mg PO DAILY@0809/19/15 [History] carBAMazepine [carBAMazepine ER] 300 mg PO BID@0800,1900 09/19/15 [History] Pediatric Multivitamin No.30 [Multivitamin Children's Gummies] 2 tab PO DAILY@0800 11/18/20 [History] cloNIDine HCL [Catapres] 0.1 mg PO TID@0800,1600,1900 11/18/20 [History] metFORMIN HCL ER [Glucophage XR] 500 mg PO DAILY@1400 11/18/20 [History] Acetaminophen Tab [Tylenol] 650 mg PO Q6HR PRN tab 11/21/20 [Rx] Naproxen 250 mg PO Q8H PRN #1 tablet 11/21/20 [Rx] Nystatin 100,000 Unit/gm Powd [Mycostatin Powder] 1 applic TOPICAL BID gm 11/21/20 [Rx] Follow up Appointment(s)/Referral(s): Casey Jose MD [Primary Care Provider] - 1-2 days
--- NOTE | 2020-11-25 11:41 | CDI ---
Documentation Clarification Form Date: 11/25/2020 11:30:54 AM From: Anthony Laboy Admit Date: 11/18/2020 10:45:00 AM Patient Name: Ricki Watkins Visit Number: [id number] Discharge Date: 11/21/2020 07:21:00 PM ATTENTION: The Clinical Documentation Specialists (CDI) and [facility] Coding Staff appreciate your assistance in clarifying documentation. Please respond to the clarification below the line at the bottom and electronically sign. The CDI & [facility] Coding staff will review the response and follow-up if needed. Please note: Queries are made part of the Legal Health Record. If you have any questions, please contact the author of this message via ITS. Dr. Jonh Sullivan The patients principal diagnosis the diagnosis that was chiefly responsible for the admission - has not been clearly identified and clarification is requested. Discharge summary indicates admitted for difficulty walking. The patient presented with difficulty walking and dehydration. History/Risk factors: dehydration, R foot pain, tumeral sclerosis, recent fall Clinical Indicators: Lab findings: dehydration Radiology findinds: no fracture In your professional opinion, can you please clarify which diagnosis, after study, was the reason chiefly responsible for the admission? [ ] dehydation [ ] difficulty walking caused by (please state cause): [ ] Other, please specify [ ] Unable to determine Acute on chronic gait dysfunction secondary to fall with blunt injury to the knee and ankle on the right side. MTDD
== END 2020-11-21 19:21 | DRG 556 ==
LOC: EEVIPCON 07:32 → EC 07:32 → 5NMEDONC 10:45
PROVIDERS: ADMIT Hospitalist; ATTEND Hospitalist
DX: R26.2 Difficulty in walking, not elsewhere classified (principal); Q85.1 Tuberous sclerosis; Z68.44 Body mass index [BMI] 60.0-69.9, adult; E86.0 Dehydration; R62.7 Adult failure to thrive; M79.671 Pain in right foot; E66.01 Morbid (severe) obesity due to excess calories; B37.2 Candidiasis of skin and nail; I10 Essential (primary) hypertension; E11.9 Type 2 diabetes mellitus without complications; G40.909 Epilepsy, unspecified, not intractable, without status epilepticus; Z80.42 Family history of malignant neoplasm of prostate; Z79.84 Long term (current) use of oral hypoglycemic drugs; I89.0 Lymphedema, not elsewhere classified; W19.XXXA Unspecified fall, initial encounter; Z87.891 Personal history of nicotine dependence; I89.8 Other specified noninfective disorders of lymphatic vessels and lymph nodes; M15.9 Polyosteoarthritis, unspecified; M25.561 Pain in right knee; R32 Unspecified urinary incontinence; Z79.899 Other long term (current) drug therapy; F79 Unspecified intellectual disabilities; R19.00 Intra-abdominal and pelvic swelling, mass and lump, unspecified site
CPT/HCPCS: 36415; 80048; 80053; 81003; 85025; 99285

== ENCOUNTER 2022-06-11 14:06 | Emergency (ER) | payer MEDICARE, OTHER ==
[2022-06-11 15:14] VITALS: TEMP 97.7
[2022-06-11] MEDS ORDERED: SULFAMETHOX-TMP 800-160MG 1 EACH TAB PO STA (15:52)
--- NOTE | 2022-06-11 16:00 | ED ---
Extremity Problem HPI - General Chief complaint: Extremity Problem,Nontraumatic Stated complaint: lymphedema, cellulitis Time Seen by Provider: 06/11/22 15:28 Source: patient, family Mode of arrival: wheelchair Limitations: no limitations - History of Present Illness Initial comments: This patient is a 52-year-old man brought from adult foster skilled nursing to have evaluation of some redness to the skin. Most of the history is from the patient's caregiver who is with him and states that this has developed over about the last 4 days or so. Patient was seen at [facility] 2 days ago and was given Diflucan to take off for suspected fungal infection. The patient's visiting care nurse saw him today and thought that things were worse despite the medication and they were forwarded here. Patient not having fever or chills. No systemic symptoms. He is not having chest pain, palpitations, dyspnea, cough or other symptoms. In addition to that Diflucan, they report that they are using an antifungal powder to the patient's skin folds. They note that the redness involves the lower portion of the abdominal pannus and the skin folds of the right thigh. MD Complaint: other Onset/Timin -: days(s) Location: right, other (Abdomen) History of Same: No -: No fever Consistency: intermittent Improves with: nothing Worsens with: nothing Associated Symptoms: denies other symptoms - Related Data Home Medications Medication Instructions Recorded Confirmed ARIPiprazole [Abilify] 5 mg PO HS@19011/23/13 11/18/20 ARIPiprazole [Abilify] 15 mg PO DAILY@79911/23/13 11/18/20 Citalopram Hydrobromide [CeleXA] 20 mg PO DAILY@79911/23/13 11/18/20 Topiramate 200 mg PO TID@0800,1600,1900 11/23/13 11/19/20 Pravastatin Sodium [Pravachol] 40 mg PO HS@189909/19/15 11/18/20 Topiramate 25 mg PO DAILY@79909/19/15 11/18/20 carBAMazepine [carBAMazepine ER] 300 mg PO BID@0800,1900 09/19/15 11/18/20 Pediatric Multivitamin No.30 2 tab PO DAILY@79911/18/20 11/18/20 [Multivitamin Children's Gummies] cloNIDine HCL [Catapres] 0.1 mg PO TID@0800,1600,1900 11/18/20 11/18/20 metFORMIN HCL ER [Glucophage XR] 500 mg PO DAILY@1400 11/18/20 11/18/20 Previous Rx's Medication Instructions Recorded Acetaminophen Tab [Tylenol] 650 mg PO Q6HR PRN tab 11/21/20 Naproxen 250 mg PO Q8H PRN #1 tablet 11/21/20 Nystatin 100,000 Unit/gm Powd 1 applic TOPICAL BID gm 11/21/20 [Mycostatin Powder] Sulfamethox-Tmp 800-160Mg [Bactrim 1 each PO Q12HR #14 tab 06/11/22 Ds] Allergies Allergy/AdvReac Type Severity Reaction Status Date / Time No Known Allergies Allergy Verified 06/11/22 18:00 Review of Systems ROS Statement: Those systems with pertinent positive or pertinent negative responses have been documented in the HPI. ROS Other: All systems not noted in ROS Statement are negative. Constitutional: Denies: fever, chills Respiratory: Denies: cough, dyspnea Cardiovascular: Reports: edema (Chronic). Denies: chest pain, palpitations Gastrointestinal: Denies: abdominal pain, vomiting Genitourinary: Denies: dysuria Skin: Reports: as per HPI, change in color Neurological: Denies: weakness 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 History of Any Multi-Drug Resistant Organisms: None Reported Past Surgical History: No Surgical Hx Reported Additional Past Surgical History / Comment(s): per mom- no past sx Past Anesthesia/Blood Transfusion Reactions: No Reported Reaction Additional Past Anesthesia/Blood Transfusion Reaction / Comment(s): never had aa Past Psychological History: No Psychological Hx Reported Smoking Status: Former smoker - Past Family History Mother Family Medical History: No Reported History Additional Family Medical History / Comment(s): mom stated her only problem is her wt. Father Family Medical History: No Reported History Additional Family Medical History / Comment(s): prostate cancer General Exam Limitations: no limitations General appearance: alert, in no apparent distress, obese Head exam: Present: atraumatic Respiratory exam: Present: normal lung sounds bilaterally. Absent: respiratory distress, wheezes, rales, rhonchi, stridor Cardiovascular Exam: Present: regular rate, normal rhythm, normal heart sounds. Absent: systolic murmur, diastolic murmur, rubs, gallop GI/Abdominal exam: Present: soft. Absent: distended, tenderness, guarding, rebound, rigid, mass Extremities exam: Present: pedal edema (Legs have chronic venous stasis changes) Back exam: Present: normal inspection Neurological exam: Present: alert Skin exam: Present: warm, dry, erythema, other (The patient does have some early skin breakdown to the skin below the pannus on the left side of the abdomen. Th ere may be some early cellulitis as there is some accompanying warmth. No foul discharge. The right leg also has a small area with some mild warmth and erythema.) Course Vital Signs 06/11/22 06/11/22 14:32 17:31 Temperature 97.7 F Pulse Rate 78 61 Respiratory 20 18 Rate Blood Pressure 136/77 114/57 O2 Sat by Pulse 96 99 Oximetry Medical Decision Making - Medical Decision Making This patient is a 52-year-old man brought to have evaluation of erythema located between skin folds. The patient is having antifungal treatment, but there does appear to be some mild secondary cellulitis. Patient started antibiotics here will attempt a course of outpatient antibiotics, discussed with caregiver need to return if there is not rapid improvement or if there is any worsening or development of systemic symptoms. Was pt. sent in by a medical professional or institution (, PA, FAA CERTIFIED POWERPLANT MECHANIC, urgent care, hospital, or longterm...) When possible be specific @ -[No] Did you speak to anyone other than the patient for history (EMS, parent, family, police, friend...)? What history was obtained from this source @ -[Caregiver Did you review nursing and triage notes (agree or disagree)? Why? @ -[I reviewed and agree with nursing and triage notes] Were old charts reviewed (outside hosp., previous admission, EMS record, old EKG, old radiological studies, urgent care reports/EKG's, longterm records)? Report findings @ -[No old charts were reviewed] Differential Diagnosis (chest pain, altered mental status, abdominal pain women, abdominal pain men, vaginal bleeding, weakness, fever, dyspnea, syncope, headache, dizziness, GI bleed, back pain, seizure, CVA, palpatations, mental health, musculoskeletal)? @ -[Differential diagnosis includes fungal infection, cellulitis, and other rashes. EKG interpreted by me (3pts min.). @ -[ X-rays interpreted by me (1pt min.). @ -[None done] CT interpreted by me (1pt min.). @ -[None done] U/S interpreted by me (1pt. min.). @ -[None done] What testing was considered but not performed or refused? (CT, X-rays, U/S, labs)? Why? @ -[None] What meds were considered but not given or refused? Why? @ -[None] Did you discuss the management of the patient with other professionals (professionals i.e. , PA, FAA CERTIFIED POWERPLANT MECHANIC, lab, RT, psych nurse, social security benefits interviewer, pearl glue operator, teacher, hospital admissions officer, disability case manager)? Give summary @ -[No] Was smoking cessation discussed for >3mins.? @ -[No] Was critical care preformed (if so, how long)? @ -[No] Were there social determinants of health that impacted care today? How? (Homelessness, low income, unemployed, alcoholism, drug addiction, transportation, low edu. Level, literacy, decrease access to med. care, intermediate, rehab)? @ -[No] Was there de-escalation of care discussed even if they declined (Discuss DNR or withdrawal of care, Hospice)? DNR status @ -[No] What co-morbidities impacted this encounter? (DM, HTN, Smoking, COPD, CAD, Cancer, CVA, ARF, Chemo, Hep., AIDS, mental health diagnosis, sleep apnea, morbid obesity)? @ -[Morbid obesity Was patient admitted / discharged? Hospital course, mention meds given and route, prescriptions, significant lab abnormalities, going to OR and other pertinent info. @ -[Discharged Undiagnosed new problem with uncertain prognosis? @ -[No] Drug Therapy requiring intensive monitoring for toxicity (Heparin, Nitro, Insulin, Cardizem)? @ -[No] Were any procedures done? @ -[No] Diagnosis/symptom? @ -1. Intertrigo 2. Early cellulitis Acute, or Chronic, or Acute on Chronic? @ -[Acute Uncomplicated (without systemic symptoms) or Complicated (systemic symptoms)? @ -[Uncomplicated Side effects of treatment? @ -[No] Exacerbation, Progression, or Severe Exacerbation? @ -[No] Poses a threat to life or bodily function? How? (Chest pain, [place], [place], pneumonia, PE, COPD, DKA, ARF, appy, cholecystitis, CVA, Diverticulitis, Homicidal, Suicidal, threat to staff... and all critical care pts) @ -[No] - Lab Data Result diagrams: 06/11/22 16:26 06/11/22 16:26 Lab Results 06/11/22 06/11/22 06/11/22 Range/Units 16:26 16:26 16:26 WBC 7.8 (3.8-10.6) k/uL RBC 4.75 (4.30-5.90) m/uL Hgb 14.3 (13.0-17.5) gm/dL Hct 43.4 (39.0-53.0) % MCV 91.4 (80.0-100.0) fL MCH 30.2 (25.0-35.0) pg MCHC 33.0 (31.0-37.0) g/dL RDW 12.7 (11.5-15.5) % Plt Count 210 (150-450) k/uL MPV 7.7 Neutrophils % 68 % Lymphocytes % 23 % Monocytes % 5 % Eosinophils % 2 % Basophils % 0 % Neutrophils # 5.3 (1.3-7.7) k/uL Lymphocytes # 1.8 (1.0-4.8) k/uL Monocytes # 0.4 (0-1.0) k/uL Eosinophils # 0.2 (0-0.7) k/uL Basophils # 0.0 (0-0.2) k/uL Sodium 137 (137-145) mmol/L Potassium 5.0 (3.5-5.1) mmol/L Chloride 102 (98-107) mmol/L Carbon Dioxide 30 (22-30) mmol/L Anion Gap 5 mmol/L BUN 19 (9-20) mg/dL Creatinine 1.02 (0.66-1.25) mg/dL Est GFR (CKD-EPI)AfAm >90 (>60 ml/min/1.73 sqM) Est GFR (CKD-EPI)NonAf 84 (>60 ml/min/1.73 sqM) Glucose 108 H (74-99) mg/dL Plasma Lactic Acid Erik 1.2 (0.7-2.0) mmol/L Calcium 8.3 L (8.4-10.2) mg/dL Disposition Clinical Impression: Cellulitis Disposition: HOME SELF-CARE Condition: Good Instructions (If sedation given, give patient instructions): Cellulitis (ED) Prescriptions: Sulfamethox-Tmp 800-160Mg [Bactrim Ds] 1 each PO Q12HR #14 tab Is patient prescribed a controlled substance at d/c from ED?: No Referrals: Linus Rutherford MD [Primary Care Provider] - 1-2 days
[2022-06-11 17:06] LABS: Basophils % (A) 0 %; Eosinophils # (A) 0.2 k/uL (0-0.7); Eosinophils % (A) 2 %; HCT 43.4 % (39.0-53.0); HGB 14.3 gm/dL (13.0-17.5); Lymphocytes # (A) 1.8 k/uL (1.0-4.8); Lymphocytes % (A) 23 %; MCH 30.2 pg (25.0-35.0); MCV 91.4 fL (80.0-100.0); Mean Platelet Volume 7.7; Monocytes # (A) 0.4 k/uL (0-1.0); Monocytes % (A) 5 %; Neutrophils # (A) 5.3 k/uL (1.3-7.7); Neutrophils % (A) 68 %; Platelet Count 210 k/uL (150-450); RBC 4.75 m/uL (4.30-5.90); RDW 12.7 % (11.5-15.5); WBC 7.8 k/uL (3.8-10.6)
[2022-06-11 17:32] VITALS: BP 114/57; PULSE 61; RESP 18
[2022-06-11 17:35] LABS: African American GFR (CKD) >90 (>60 ml/min/1.73 sqM); Anion Gap 5 mmol/L; Blood Urea Nitrogen 19 mg/dL (9-20); Calcium 8.3 mg/dL (8.4-10.2); Carbon Dioxide 30 mmol/L (22-30); Chloride 102 mmol/L (98-107); Glucose 108 mg/dL (74-99); Non-African American GFR(CKD) 84 (>60 ml/min/1.73 sqM); Sodium 137 mmol/L (137-145)
== END 2022-06-11 18:37 | disposition home or self-care (01) ==
LOC: EC 14:06
DX: L03.115 Cellulitis of right lower limb (principal); Z87.891 Personal history of nicotine dependence
CPT/HCPCS: 36415; 80048; 83605; 85025; 99283